=== PATIENT | female | born 1960 | race African-American/Black ===

== ENCOUNTER 2023-11-06 12:13 | Emergency (ER) | payer MEDICARE, OTHER ==
[~2023-11-06] VITALS: Ht 170.2 cm; Wt 100.0 kg
[2023-11-06 12:40] VITALS: O2SAT 98
[2023-11-06 13:25] LABS: HEMATOCRIT. 28.8 % (36.0-48.0); HEMOGLOBIN. 9.2 g/dL (12.0-16.0); MEAN CORPUSCULAR HGB CONC 31.8 g/dL (31.0-37.0); MEAN CORPUSCULAR VOLUME 91.3 fL (81.0-99.0); MEAN PLATELET VOLUME 7.1 fl (7.4-10.4); PLATELET 227 x1000/uL (130-400); RED BLOOD CELL COUNT 3.15 mill/uL (4.2-5.4); RED CELL DISTRIBUTION WIDTH 26.2 % (11.6-14.6); WHITE BLOOD COUNT 6.3 x1000/uL (4.5-11.0)
[2023-11-06 13:31] LABS: DIFFERENTIAL COMMENT 1
[2023-11-06 13:37] LABS: ALANINE AMINOTRANSFERASE 14 IU/L (10-49); ASPARTATE AMINOTRANSFERASE 23 IU/L (<34); BILIRUBIN TOTAL 0.6 mg/dL (0.1-1.0); CALCIUM 9.2 mg/dL (8.7-10.4); CARBON DIOXIDE 26 mEq/L (21-32); CHLORIDE 110 mEq/L (98-107); GLUCOSE 103 mg/dL (70-105); POTASSIUM 3.8 mEq/L (3.5-5.1); PROTEIN TOTAL 7.6 g/dL (6.0-8.3); SODIUM 142 mEq/L (136-145); UREA NITROGEN BLOOD 16 mg/dL (9-23)
[2023-11-06 14:10] LABS: NUCLEATED RED BLOOD CELLS 1 /100 WBC
[2023-11-06 14:11] LABS: TARGET CELLS 1+
[2023-11-06 14:12] LABS: ANISOCYTOSIS 4+; PLATELET ESTIMATE NORMAL
[2023-11-06] MEDS ORDERED: KETOROLAC 30MG/ML VIAL IV ONE (15:00)
[2023-11-06] MEDS ORDERED: MORPHINE SULFATE 4 MG/ML CPJ (NOT FOR IM USE) IV ONE (15:00)
[2023-11-06] MEDS ORDERED: ONDANSETRON HCL 4MG/2ML INJ IV ONE (15:00)
[2023-11-06] MEDS ORDERED: SODIUM CHLORIDE 0.9% 1,000 ML IV ONE (15:00)
[2023-11-06 15:06] VITALS: BP 130/94; PULSE 110; RESP 16; TEMP 98.5
== END 2023-11-06 15:56 | disposition left against medical advice (07) ==
LOC: ER 12:13
DX: D57.00 Hb-SS disease with crisis, unspecified (principal); D64.9 Anemia, unspecified; M79.605 Pain in left leg; M79.604 Pain in right leg; I10 Essential (primary) hypertension; Z88.0 Allergy status to penicillin; Z98.890 Other specified postprocedural states
CPT/HCPCS: 80053; 85025; 85044; 36415; 99283; J2270; Z7610 ×2; J1885; J2405

== ENCOUNTER 2024-01-12 10:30 | Emergency (ER) | payer OTHER ==
[~2024-01-12] VITALS: Ht 167.6 cm; Wt 90.0 kg
[2024-01-12 10:39] VITALS: TEMP 98.3; O2SAT 100
[2024-01-12 11:14] LABS: BASOPHILS % 0.6 % (0.0-2.0); EOSINOPHILS % 1.3 % (0.0-5.0); HEMATOCRIT. 31.8 % (36.0-48.0); HEMOGLOBIN. 10.2 g/dL (12.0-16.0); LYMPHOCYTES % 22.9 % (20.0-50.0); MEAN CORPUSCULAR HEMOGLOBIN 31.1 pg (28.0-32.0); MEAN CORPUSCULAR HGB CONC 32.2 g/dL (31.0-37.0); MEAN CORPUSCULAR VOLUME 96.7 fL (81.0-99.0); MEAN PLATELET VOLUME 7.4 fl (7.4-10.4); MONOCYTES % 4.1 % (2.0-8.0); NEUTROPHILS % 71.1 % (40.0-76.0); PLATELET 245 x1000/uL (130-400); RED BLOOD CELL COUNT 3.29 mill/uL (4.2-5.4); RED CELL DISTRIBUTION WIDTH 20.1 % (11.6-14.6); WHITE BLOOD COUNT 4.5 x1000/uL (4.5-11.0)
[2024-01-12 11:52] LABS: ALANINE AMINOTRANSFERASE 15 IU/L (10-49); ALBUMIN 4.3 g/dL (3.2-4.8); ASPARTATE AMINOTRANSFERASE 23 IU/L (<34); BILIRUBIN TOTAL 0.5 mg/dL (0.1-1.0); CALCIUM 8.8 mg/dL (8.7-10.4); CARBON DIOXIDE 26 mEq/L (21-32); CHLORIDE 108 mEq/L (98-107); GLUCOSE 102 mg/dL (70-105); POTASSIUM 3.6 mEq/L (3.5-5.1); PROTEIN TOTAL 7.1 g/dL (6.0-8.3); SODIUM 143 mEq/L (136-145); TROPONIN I HIGH SENSITIVITY 4 ng/L (3.0-34); UREA NITROGEN BLOOD 12 mg/dL (9-23)
[2024-01-12 11:57] LABS: CREATININE 1.4 mg/dL (0.6-1.0)
[2024-01-12] MEDS ORDERED: HYDR-4001 MT (13:19)
[2024-01-12 13:32] VITALS: BP 137/103; PULSE 94; RESP 18
[2024-01-12] MEDS: HYDROCODONE/ACETAMINOPHEN 10/325MG TABLET PO ONE (13:32)
[2024-01-12] MEDS: KETOROLAC 60MG/2ML VIAL IM ONE (13:32)
== END 2024-01-12 13:56 | disposition home or self-care (01) ==
LOC: ER 10:30
DX: R07.9 Chest pain, unspecified (principal); D56.1 Beta thalassemia; I10 Essential (primary) hypertension; D57.1 Sickle-cell disease without crisis; F03.90 Unspecified dementia, unspecified severity, without behavioral disturbance, psychotic disturbance, mood disturbance, and anxiety; Z98.890 Other specified postprocedural states; Z88.0 Allergy status to penicillin
CPT/HCPCS: 99285; 71045; 80053; 83880; 85025; 84484; 36415; 93005; 96372; J1885

== ENCOUNTER 2024-02-16 13:04 | Emergency (ER) | payer OTHER ==
[~2024-02-16] VITALS: Ht 172.7 cm; Wt 104.0 kg
[~2024-02-16 13:04] MED LIST: AMIT50TA4 PO; DILT240C91 MT; GABA-532 PO; HYDR-4001 MT; HYDR500C18 PO; LEVE10006 PO; MORP30TA7 PO
[2024-02-16 13:30] VITALS: BP 161/92; PULSE 88; RESP 20; TEMP 98.1; O2SAT 100
[2024-02-16 14:14] LABS: HEMATOCRIT. 30.8 % (36.0-48.0); HEMOGLOBIN. 9.7 g/dL (12.0-16.0); MEAN CORPUSCULAR HEMOGLOBIN 31.1 pg (28.0-32.0); MEAN CORPUSCULAR HGB CONC 31.4 g/dL (31.0-37.0); MEAN PLATELET VOLUME 7.4 fl (7.4-10.4); PLATELET 245 x1000/uL (130-400); RED BLOOD CELL COUNT 3.11 mill/uL (4.2-5.4); RED CELL DISTRIBUTION WIDTH 20.2 % (11.6-14.6); WHITE BLOOD COUNT 4.7 x1000/uL (4.5-11.0)
[2024-02-16 14:17] LABS: DIFFERENTIAL COMMENT 1
[2024-02-16 14:20] LABS: CHLORIDE 111 mEq/L (98-107); POTASSIUM 4.2 mEq/L (3.5-5.1); SODIUM 142 mEq/L (136-145)
[2024-02-16 14:21] LABS: CALCIUM 9.6 mg/dL (8.7-10.4); CARBON DIOXIDE 24 mEq/L (21-32)
[2024-02-16 14:26] LABS: CREATININE 1.4 mg/dL (0.6-1.0); GLUCOSE 74 mg/dL (70-105); UREA NITROGEN BLOOD 17 mg/dL (9-23)
[2024-02-16 14:27] LABS: TROPONIN I HIGH SENSITIVITY 7 ng/L (3.0-34)
[2024-02-16] MEDS ORDERED: ASPIRIN 325MG EC TABLET PO NR (16:45)
[2024-02-16 17:03] LABS: PLATELET ESTIMATE NORMAL
[2024-02-16 17:07] LABS: ANISOCYTOSIS 2+
[2024-02-16 17:08] LABS: TARGET CELLS 1+
[2024-02-16] MEDS ORDERED: CALCIUM GLUCONATE 1GM PREMIX 50 ML IV NR (17:45)
== END 2024-02-16 17:35 | disposition left against medical advice (07) ==
LOC: ER 13:04
DX: R07.9 Chest pain, unspecified (principal); I10 Essential (primary) hypertension; F03.90 Unspecified dementia, unspecified severity, without behavioral disturbance, psychotic disturbance, mood disturbance, and anxiety; D57.1 Sickle-cell disease without crisis; Z96.653 Presence of artificial knee joint, bilateral; Z98.890 Other specified postprocedural states; Z88.0 Allergy status to penicillin; Z85.841 Personal history of malignant neoplasm of brain
CPT/HCPCS: 36415; 71045; 80048; 84484; 85025; 93005; 99285; J0610